=== PATIENT | male | born 1960 | race African-American/Black ===

== ENCOUNTER 2019-03-11 16:16 | Inpatient (IN) ==
[2019-03-11] MEDS ORDERED: Isovue-370 500 ML BOTTLE IVP ONE (16:23)
[2019-03-11 17:45] LABS: Hematocrit 37.3 % (37.5-50.1); Hemoglobin 12.7 g/dL (12.9-16.9); Mean Corpuscular Hemoglobin 30.8 pg (28.0-33.3); Mean Corpuscular Volume 90.5 fL (83.0-100.0); Mean Platelet Volume 9.6 fL (9.4-12.4); Red Blood Count 4.12 M/mcL (4.19-5.50); Red Cell Distribution Width 13.8 % (11.5-14.5); White Blood Count 6.4 K/mcL (4.3-11.1)
[2019-03-11 18:07] LABS: BUN/Creatinine Ratio 14 (6-26); Blood Urea Nitrogen 11 mg/dL (6-20); Calcium 8.8 mg/dL (8.6-10.3); Carbon Dioxide 26 mEq/L (23-29); Chloride 101 mEq/L (98-107); Creatine Kinase 107 Units/L (30-223); Ethanol < 10 mg/dL (Less than 10); Glucose 139 mg/dL (70-105); Osmolality,Calculated 284 (280-300); Potassium 3.3 mEq/L (3.5-5.1); Sodium 136 mEq/L (136-145); Troponin I < 0.03 ng/mL (< 0.04); eGFR For African Americans > 60 (> 60); eGFR For Non-African Americans > 60 (> 60)
[2019-03-11 18:14] LABS: INR 1.2; Prothrombin Time 13.6 Seconds (9.4-12.1)
[2019-03-11 18:17] LABS: Activated Partial Thrombo Time 30.7 Seconds (26.0-36.0)
[2019-03-11] MEDS ORDERED: Aspirin 325 MG TABLET PO ONE (18:19)
[2019-03-12] MEDS ORDERED: predniSONE 20 MG TABLET PO ONE (02:12)
[2019-03-12] MEDS ORDERED: Melatonin 3 MG TABLET PO PRN (02:15)
[2019-03-12] MEDS ORDERED: *HR* Dextrose 50 % in Water (Syg) 50 ML SYRINGE IVP PRN (02:16)
[2019-03-12] MEDS ORDERED: Dextrose Gel 15 GM/37.5 ML TUBE PO PRN ×2 (02:16)
[2019-03-12] MEDS ORDERED: D5% in Water 1,000 ML IVC PRN (02:16)
[2019-03-12 07:06] LABS: Hematocrit 39.1 % (37.5-50.1); Hemoglobin 13.6 g/dL (12.9-16.9); Mean Corpuscular HGB Conc 34.8 g/dL (31.6-35.5); Mean Corpuscular Hemoglobin 30.4 pg (28.0-33.3); Mean Corpuscular Volume 87.5 fL (83.0-100.0); Mean Platelet Volume 9.7 fL (9.4-12.4); Platelet Count 367 K/mcL (140-400); Red Blood Count 4.47 M/mcL (4.19-5.50); White Blood Count 8.7 K/mcL (4.3-11.1)
[2019-03-12 07:12] LABS: INR 1.2; Prothrombin Time 13.6 Seconds (9.4-12.1)
[2019-03-12 07:29] LABS: Alanine Aminotransferase 29 Units/L (7-52); Albumin/Globulin Ratio 1.6 (1.1-2.2); Alkaline Phosphatase 98 Units/L (34-104); Aspartate Amino Transferase 15 Units/L (13-39); BUN/Creatinine Ratio 11 (6-26); Bilirubin,Total 0.9 mg/dL (0.3-1.0); Blood Urea Nitrogen 8 mg/dL (6-20); Calcium 9.1 mg/dL (8.6-10.3); Carbon Dioxide 26 mEq/L (23-29); Chloride 101 mEq/L (98-107); Chol/HDL Ratio 2.8 (0-4.9); Cholesterol 108 mg/dL (< 200); Globulin 2.5 g/dL (2.4-3.5); Glucose 161 mg/dL (70-105); HDL Cholesterol 38 mg/dL (40-59); LDL Cholesterol,Calculated 58 mg/dL (0-99); Osmolality,Calculated 288 (280-300); Potassium 3.6 mEq/L (3.5-5.1); Sodium 138 mEq/L (136-145); Total Protein 6.5 g/dL (6.4-8.9); Triglycerides 61 mg/dL (< 150); Troponin I < 0.03 ng/mL (< 0.04); eGFR For African Americans > 60 (> 60); eGFR For Non-African Americans > 60 (> 60)
[2019-03-12] MEDS ORDERED: Aspirin Enteric Coated 81 MG Tablet PO SCH (09:00)
[2019-03-12 09:09] LABS: Estimated Average Glucose 180 mg/dl
[2019-03-12] MEDS: Insulin LISPRO 300 UNITS/3 ML VIAL SQ SCH ×3 (09:51→16:59)
[2019-03-12] MEDS: Aspirin Enteric Coated 81 MG Tablet PO SCH (09:51)
[2019-03-12] MEDS ORDERED: Colchicine 0.6 MG TABLET PO PRN (11:06)
[2019-03-12] MEDS ORDERED: Colchicine 0.6 MG TABLET PO ONE (12:15)
[2019-03-12] MEDS ORDERED: Perflutren Lipid Microsphere 1.3 ML in 0.9 % Sodium Chloride 8.7 ML IVP ONE (14:11)
[2019-03-12] MEDS: FLUoxetine 20 MG CAPSULE PO SCH (20:27)
[2019-03-12] MEDS: Insulin DETEMIR 100 UNIT/ML X5UNITS SQ SCH (20:28)
[2019-03-13 06:18] LABS: Bilirubin,Urine Small (Negative); Blood,Urine Negative (Negative); Clarity,Urine Clear (Clear); Color,Urine Yellow (Yellow); Glucose,Urine (UA) Normal (Normal); Ketones,Urine Negative (Negative); Leukocyte Esterase,Urine Negative (Negative); Nitrite,Urine Negative (Negative); Protein,Urine Trace mg/dL (Neg-Trace); Specific Gravity,Urine 1.019 (1.010-1.025); Urobilinogen,Urine Normal (Normal)
[2019-03-13] MEDS: Aspirin Enteric Coated 81 MG Tablet PO SCH (06:45)
[2019-03-13] MEDS: FLUoxetine 20 MG CAPSULE PO SCH ×2 (06:46→19:51)
[2019-03-13] MEDS ORDERED: Nystatin SUSP 5 ML UD.LIQ ONE (15:36)
[2019-03-13] MEDS ORDERED: *HR* Enoxaparin 40 MG/0.4 ML SYRINGE SQ ONE (18:56)
[2019-03-13] MEDS: Insulin LISPRO 300 UNITS/3 ML VIAL SQ SCH ×2 (19:42→19:43)
[2019-03-13] MEDS: Nystatin SUSP 5 ML UD.LIQ PO SCH (19:50)
[2019-03-13] MEDS: Insulin DETEMIR 100 UNIT/ML X5UNITS SQ SCH (20:22)
[2019-03-13] MEDS ORDERED: Isovue-370 500 ML BOTTLE IVP ONE (20:33)
[2019-03-13] MEDS: Chloraseptic Spray 177 ML BOTTLE MM PRN (21:39)
[2019-03-13] MEDS: Artificial Tears SOLN 15 ML BOTTLE BOTH EYES SCH (21:39)
[2019-03-14] MEDS: *HR* Enoxaparin 40 MG/0.4 ML SYRINGE SQ SCH (05:32)
[2019-03-14] MEDS: Chloraseptic Spray 177 ML BOTTLE MM PRN ×2 (05:36→19:27)
[2019-03-14 08:11] LABS: Hemoglobin 12.9 g/dL (12.9-16.9); Mean Corpuscular HGB Conc 33.1 g/dL (31.6-35.5); Mean Corpuscular Hemoglobin 30.7 pg (28.0-33.3); Mean Corpuscular Volume 92.9 fL (83.0-100.0); Mean Platelet Volume 9.4 fL (9.4-12.4); Platelet Count 289 K/mcL (140-400); Red Cell Distribution Width 14.2 % (11.5-14.5)
[2019-03-14 08:34] LABS: BUN/Creatinine Ratio 14 (6-26); Blood Urea Nitrogen 11 mg/dL (6-20); Calcium 8.8 mg/dL (8.6-10.3); Carbon Dioxide 26 mEq/L (23-29); Chloride 106 mEq/L (98-107); Glucose 126 mg/dL (70-105); Osmolality,Calculated 291 (280-300); Potassium 3.5 mEq/L (3.5-5.1); Sodium 140 mEq/L (136-145); eGFR For African Americans > 60 (> 60); eGFR For Non-African Americans > 60 (> 60)
[2019-03-14] MEDS: Insulin LISPRO 300 UNITS/3 ML VIAL SQ SCH ×3 (08:34→16:27)
[2019-03-14] MEDS: FLUoxetine 20 MG CAPSULE PO SCH ×2 (08:51→20:20)
[2019-03-14] MEDS: Aspirin Enteric Coated 81 MG Tablet PO SCH (08:52)
[2019-03-14] MEDS: Nystatin SUSP 5 ML UD.LIQ PO SCH ×4 (08:52→20:20)
[2019-03-14] MEDS: Artificial Tears SOLN 15 ML BOTTLE BOTH EYES SCH ×4 (08:54→20:20)
[2019-03-14] MEDS: Gabapentin 100 MG CAPSULE PO SCH ×2 (13:05→20:20)
[2019-03-14] MEDS: Insulin DETEMIR 100 UNIT/ML X5UNITS SQ SCH (20:20)
[2019-03-14] MEDS ORDERED: *HR* OxyCODONE Immed Rel 5 MG TABLET PO ONE (23:13)
[2019-03-14] MEDS: *HR* Promethazine 25 MG/ML VIAL IVP PRN (23:20)
[2019-03-15] MEDS: *HR* Enoxaparin 40 MG/0.4 ML SYRINGE SQ SCH (06:15)
[2019-03-15 06:51] LABS: Hematocrit 37.8 % (37.5-50.1); Mean Corpuscular HGB Conc 34.4 g/dL (31.6-35.5); Mean Corpuscular Hemoglobin 30.7 pg (28.0-33.3); Mean Corpuscular Volume 89.4 fL (83.0-100.0); Mean Platelet Volume 9.8 fL (9.4-12.4); Platelet Count 319 K/mcL (140-400); Red Blood Count 4.23 M/mcL (4.19-5.50); Red Cell Distribution Width 14.1 % (11.5-14.5); White Blood Count 6.3 K/mcL (4.3-11.1)
[2019-03-15 07:26] LABS: BUN/Creatinine Ratio 13 (6-26); Blood Urea Nitrogen 10 mg/dL (6-20); Calcium 8.7 mg/dL (8.6-10.3); Carbon Dioxide 27 mEq/L (23-29); Chloride 105 mEq/L (98-107); Glucose 105 mg/dL (70-105); Osmolality,Calculated 289 (280-300); Potassium 3.5 mEq/L (3.5-5.1); Sodium 140 mEq/L (136-145); eGFR For African Americans > 60 (> 60); eGFR For Non-African Americans > 60 (> 60)
[2019-03-15] MEDS: Insulin LISPRO 300 UNITS/3 ML VIAL SQ SCH ×3 (07:31→16:19)
[2019-03-15] MEDS: FLUoxetine 20 MG CAPSULE PO SCH ×2 (09:39→20:32)
[2019-03-15] MEDS: Gabapentin 100 MG CAPSULE PO SCH ×2 (09:39→20:33)
[2019-03-15] MEDS: Nystatin SUSP 5 ML UD.LIQ PO SCH ×4 (09:39→20:32)
[2019-03-15] MEDS: Aspirin Enteric Coated 81 MG Tablet PO SCH (09:39)
[2019-03-15] MEDS: Artificial Tears SOLN 15 ML BOTTLE BOTH EYES SCH ×4 (09:41→20:33)
[2019-03-15] MEDS: Indomethacin 25 MG CAPSULE PO SCH ×2 (13:16→20:33)
[2019-03-15] MEDS: Insulin DETEMIR 100 UNIT/ML X5UNITS SQ SCH (20:32)
[2019-03-16] MEDS ORDERED: traMADol 50 MG TABLET PO ONE (00:24)
[2019-03-16] MEDS: *HR* Promethazine 25 MG/ML VIAL IVP PRN (00:36)
[2019-03-16] MEDS: *HR* Enoxaparin 40 MG/0.4 ML SYRINGE SQ SCH (05:34)
[2019-03-16] MEDS: FLUoxetine 20 MG CAPSULE PO SCH ×2 (08:26→20:06)
[2019-03-16] MEDS: hydroCHLOROthiazide 25 MG TABLET PO SCH (08:26)
[2019-03-16] MEDS: Gabapentin 100 MG CAPSULE PO SCH ×2 (08:27→20:06)
[2019-03-16] MEDS: Lisinopril 20 MG TABLET PO SCH (08:27)
[2019-03-16] MEDS: Nystatin SUSP 5 ML UD.LIQ PO SCH ×4 (08:27→20:08)
[2019-03-16] MEDS: Aspirin Enteric Coated 81 MG Tablet PO SCH (08:27)
[2019-03-16] MEDS: Indomethacin 25 MG CAPSULE PO SCH ×3 (08:27→20:06)
[2019-03-16] MEDS: Insulin LISPRO 300 UNITS/3 ML VIAL SQ SCH ×3 (08:28→16:09)
[2019-03-16] MEDS: Artificial Tears SOLN 15 ML BOTTLE BOTH EYES SCH ×4 (08:29→20:08)
[2019-03-16] MEDS: Insulin DETEMIR 100 UNIT/ML X5UNITS SQ SCH (20:07)
[2019-03-17] MEDS ORDERED: Benzonatate 100 MG CAPSULE PO PRN (00:59)
[2019-03-17] MEDS: *HR* Enoxaparin 40 MG/0.4 ML SYRINGE SQ SCH (05:53)
[2019-03-17] MEDS: Gabapentin 100 MG CAPSULE PO SCH ×2 (08:13→21:40)
[2019-03-17] MEDS: Indomethacin 25 MG CAPSULE PO SCH ×3 (08:13→21:40)
[2019-03-17] MEDS: Lisinopril 20 MG TABLET PO SCH (08:13)
[2019-03-17] MEDS: Aspirin Enteric Coated 81 MG Tablet PO SCH (08:14)
[2019-03-17] MEDS: FLUoxetine 20 MG CAPSULE PO SCH ×2 (08:14→21:40)
[2019-03-17] MEDS: hydroCHLOROthiazide 25 MG TABLET PO SCH (08:15)
[2019-03-17] MEDS: Nystatin SUSP 5 ML UD.LIQ PO SCH ×4 (08:15→21:43)
[2019-03-17] MEDS: Artificial Tears SOLN 15 ML BOTTLE BOTH EYES SCH ×4 (08:30→21:40)
[2019-03-17] MEDS: Insulin LISPRO 300 UNITS/3 ML VIAL SQ SCH ×2 (12:52→18:08)
[2019-03-17] MEDS: amLODIPine 5 MG TABLET PO SCH (15:58)
[2019-03-17] MEDS: Insulin DETEMIR 100 UNIT/ML X5UNITS SQ SCH (21:50)
[2019-03-18 05:23] LABS: Hematocrit 37.2 % (37.5-50.1); Hemoglobin 12.4 g/dL (12.9-16.9); Mean Corpuscular HGB Conc 33.3 g/dL (31.6-35.5); Mean Corpuscular Hemoglobin 30.2 pg (28.0-33.3); Mean Corpuscular Volume 90.5 fL (83.0-100.0); Mean Platelet Volume 9.5 fL (9.4-12.4); Platelet Count 316 K/mcL (140-400); Red Blood Count 4.11 M/mcL (4.19-5.50); Red Cell Distribution Width 13.4 % (11.5-14.5); White Blood Count 5.7 K/mcL (4.3-11.1)
[2019-03-18 05:34] LABS: BUN/Creatinine Ratio 16 (6-26); Blood Urea Nitrogen 12 mg/dL (6-20); Calcium 8.4 mg/dL (8.6-10.3); Carbon Dioxide 23 mEq/L (23-29); Chloride 106 mEq/L (98-107); Glucose 105 mg/dL (70-105); Osmolality,Calculated 282 (280-300); Potassium 3.8 mEq/L (3.5-5.1); Sodium 136 mEq/L (136-145); eGFR For African Americans > 60 (> 60); eGFR For Non-African Americans > 60 (> 60)
[2019-03-18] MEDS: *HR* Enoxaparin 40 MG/0.4 ML SYRINGE SQ SCH (06:17)
[2019-03-18] MEDS: Insulin LISPRO 300 UNITS/3 ML VIAL SQ SCH ×3 (09:17→17:37)
[2019-03-18] MEDS: amLODIPine 5 MG TABLET PO SCH (10:07)
[2019-03-18] MEDS: hydroCHLOROthiazide 25 MG TABLET PO SCH (10:07)
[2019-03-18] MEDS: Lisinopril 20 MG TABLET PO SCH (10:07)
[2019-03-18] MEDS: Nystatin SUSP 5 ML UD.LIQ PO SCH ×3 (10:07→17:37)
[2019-03-18] MEDS: FLUoxetine 20 MG CAPSULE PO SCH (10:08)
[2019-03-18] MEDS: Gabapentin 100 MG CAPSULE PO SCH (10:08)
[2019-03-18] MEDS: Artificial Tears SOLN 15 ML BOTTLE BOTH EYES SCH ×3 (10:08→17:37)
[2019-03-18] MEDS: Indomethacin 25 MG CAPSULE PO SCH ×2 (10:08→17:37)
[2019-03-18 16:36] VITALS: BP 119/71
== END 2019-03-18 19:50 | DRG 65 ==
LOC: EMEROOARM 16:16 → 3BNU 16:16 → SUATTDRO 03-12 10:59
PROVIDERS: ADMIT Student in an Organized Health Care Education/Training Program; ATTEND Internal Medicine